=== PATIENT | female | born 1980 | race Caucasian/White ===

== ENCOUNTER 2023-05-24 08:13 | Outpatient (CLI) | payer BC, SELFPAY ==
--- NOTE | ~2023-05-24 | US_ITS ---
EXAMINATION: US right upper quadrant DATE: 05/24/2023 08:35 INDICATION: Right upper quadrant abdominal pain TECHNIQUE: Multiple grayscale and Doppler ultrasound images of the right upper quadrant were obtained . COMPARISON: None available. FINDINGS: The visualized portions of the pancreas are normal. The liver is normal with normal echogen icity and echotexture. No surface nodularity. Normal hepatopetal flow in the main portal vein. The ga llbladder is normal with no abnormal wall thickening, pericholecystic fluid or stones. The common cruz e duct measures 3 mm. There was no sonographic Arias sign. IMPRESSION: Normal right upper quadrant ultrasound findings. Reviewed, dictated and finalized at location K.
== END 2023-05-24 08:14 | disposition home or self-care (01) ==
LOC: CHSIMG 08:17
PROVIDERS: PCP Family Medicine; Visit Provider Family Medicine
DX: R10.11 Right upper quadrant pain (principal)
CPT/HCPCS: 76705